=== PATIENT | female | born 1990 | race Caucasian/White ===

== ENCOUNTER 2019-12-11 08:46 | Inpatient (IN) ==
[2019-12-11] MEDS ORDERED: OXYTOCIN 30 UNITS/500 ML BAG IV PRN ×2 (09:11→18:48)
--- NOTE | 2019-12-11 09:17 | Labor Progress Brief Note ---
Date of Service December 11, 2019 Subjective Contractions Q5min overnight. No LOF, VB. +FM. Assessment & Plan (1) Normal labor and delivery: Making change despite contrations fairly spaced apart. Will manage expectantly for now. Physical Exam Physical Exam: /-2 and definite change from office exam yesterday. FHT Cat 1 and [place] Q7min. Results & Data Vital Signs (Past 12 Hours) Vital Signs Temp Pulse Resp BP 12/11/19 08:56 95 H 127/80 12/11/19 08:55 98.1 F 16 Coding Level of Care Code None Diagnoses Normal labor and delivery O80
[2019-12-11 09:31] LABS: Hematocrit (blood only) 37.6 % (37-47); Hemoglobin 12.7 g/dL (12.0-16.0); Mean Corpuscular Hemoglobin 30.7 pg (25-34); Mean Corpuscular Volume 90.8 fL (80-100); Mean Platelet Volume 13.9 fL (7.4-10.4); Platelet Count 172 K/uL (130-400); RDW Coefficient of Variation 13.4 % (11.5-14.5); RDW Standard Deviation 44.5 fL (36.4-46.3); Red Blood Count 4.14 M/uL (4.2-5.4); White Blood Count 16.24 K/uL (4.8-10.8)
[2019-12-11 09:52] LABS: Mean Corpuscular Hgb Conc 33.8 g/dL (32-36)
[2019-12-11] MEDS: LACTATED RINGER'S 1,000 ML IV PRN ×2 (12:18→15:01)
[2019-12-11] MEDS ORDERED: ePHEDrine sulfate 50 MG/ML AMP ONE (12:23)
[2019-12-11] MEDS ORDERED: BUPIVACAINE 0.25% 30 ML VIAL ONE (12:23)
[2019-12-11] MEDS ORDERED: fentaNYL citrate 100 MCG/2 ML VIAL ONE (12:23)
[2019-12-11] MEDS ORDERED: fentaNYL 2MCG/ML ROPIV 1.25MG/ML 100 ML BAG EPI ONE (12:25)
--- NOTE | 2019-12-11 12:26 | Labor Progress Brief Note ---
Date of Service December 11, 2019 Subjective Ready for epidural. Assessment & Plan (1) Normal labor and delivery: cont curr mgmt. Physical Exam Physical Exam: 6/100/-1 AROM clear FHT Cat 1 [place] Q3-5 irreg Results & Data Vital Signs (Past 12 Hours) Vital Signs Temp Pulse Resp BP Pulse Ox 12/11/19 12:20 91 H 97 12/11/19 11:06 97.9 F 16 12/11/19 11:05 81 130/74 12/11/19 08:56 95 H 127/80 12/11/19 08:55 98.1 F 16 Coding Level of Care Code None Diagnoses Normal labor and delivery O80
--- NOTE | 2019-12-11 13:30 | Anesthesiology Consultation ---
Date of Service December 11, 2019 Assessment & Plan (1) Encounter for pre-operative examination: Chart Review Chart Review: Patient NOT seen in Pre Admission Testing and Acceptable Risk for Labor Epidural Consults Requested none ASA ASA2 Proposed Anesthesia Anesthesia Type: Labor Epidural Risk / Benefits Reviewed With: PT / POA / Parent / Guardian, Accepts Plan and Informed Consent Obtained History Height/Weight Height: 5 ft 3 in Weight: 87.997 kg Allergies Allergy/AdvReac Type Severity Reaction Status Date / Time amoxicillin Allergy Hives Verified 12/11/19 09:00 Medications Home Medications Medication Instructions Recorded Confirmed Last Taken prenat.vits,nathan,[id number] 1 tab PO DAILY 11/05/19 12/11/19 12/10/19 09:00 folic acid 1 mg tablet 4 mg PO DAILY #30 tab 12/03/19 12/11/19 12/10/19 09:00 Active Medications Generic Name Dose Route Start Last Admin Trade Name Freq PRN Reason Stop Dose Admin Lactated Ringer's 1,000 mls @ 125 mls/hr 12/11/19 09:15 12/11/19 12:47 Lr IV 12/13/19 09:14 125 mls/hr .Q8H PRN Infusion L&D Protocol Protocol NPO Date Last Intake of Fluids: 12/11/19 Time Last Intake of Fluids: 13:28 Date Last Intake of Solids: 12/10/19 Time Last Intake of Solids: 21:00 Past Medical History Medical History theraputic in 2019 Anemia no medications Asthma as a child; no medications currently Hx of varicella as a child Exercise / Class Metabolic Activity II 4-5 Yardwork/Stairs/Walk up hill Past Family History Family History Mother Breast cancer Anemia Grandmother (Maternal) Anemia Aunt Anemia Past Surgical History Surgical History H/O hernia repair right 2008 Past Anesthesia History No Hx of Anesthesia Complications History of PONV No Hx of PONV Social History Smoking Status: Never smoker Hx Alcohol Use: No Hx Substance Use: No substance use type: does not use Review of Systems Patient denies history of abnormal bleeding or bleeding disorder. Patient denies active use of anticoagulants other than low dose aspirin. Patient denies numbness, tingling or weakness in lower extremities. Physical Exam Vital Signs Last Vital Signs Temp 36.6 C 12/11/19 11:06 Pulse 84 12/11/19 13:20 Resp 16 12/11/19 11:06 BP 130/74 12/11/19 11:05 Pulse Ox 96 12/11/19 13:20 Constitutional not obese (Gravid uterus) ENMT Mouth: no TMJ abnormality and oral opening not small Thyromental Distance: > or= 3.5 Finger Breadths Mallampati Class: II Neck normal visual inspection; neck extension not limited Respiratory normal respiratory effort Auscultation: lungs clear to auscultation bilaterally Cardiovascular Rate/Rhythm: regular rate and regular rhythm Heart Sounds: no murmur Neurologic moves all extremities Motor/Sensory: no sensory deficit Psychiatric Orientation: alert and oriented x 3 Testing Laboratory Results 12/11/19 09:18
[2019-12-11] MEDS ORDERED: fentaNYL 2MCG/ML ROPIV 1.25MG/ML 100 ML BAG EPI PRN (14:14)
[2019-12-11] MEDS ORDERED: ONDANSETRON INJ 2 MG/ML 2 ML VIAL IV PRN (14:14)
[2019-12-11] MEDS ORDERED: NALBUPHINE HCL INJ 10 MG/ML AMP IV PRN (14:14)
[2019-12-11] MEDS ORDERED: NALOXONE HCL 1 MG in SODIUM CHLORIDE 0.9% 1000ML 1,000 ML IV PRN (14:14)
[2019-12-11] MEDS ORDERED: ePHEDrine sulfate 50 MG/ML AMP IV PRN (14:14)
[2019-12-11] MEDS ORDERED: NALOXONE HCL 0.4 MG/1 ML VIAL/CARP IV PRN (14:14)
[2019-12-11] MEDS ORDERED: DiphenhydrAMINE HCL 50 MG/ML VIAL IV PRN (14:14)
--- NOTE | 2019-12-11 21:29 | Delivery Summary ---
Vaginal Delivery Summary Date of Service December 11, 2019 Vaginal Delivery Summary DIAGNOSES: 1. Tran intrauterine at 40w2d gestation. 2. Spontaneous onset of labor. 3. Group B Streptococcus Neg. PROCEDURE: Spontaneous vaginal delivery and repair of second degree laceration. SURGEON: Rosemry Alarcon MD. SHOTGUN SHELL ASSEMBLY MACHINE OPERATOR: None. ESTIMATED BLOOD LOSS: 300 mL. COMPLICATIONS: None. PLACENTA: Spontaneous and intact with a 3-vessel cord. DISPOSITION: Stable to labor and delivery. DESCRIPTION: The patient pushed well and brought the head to in OA position with mild asynclitism. The infant's head was allowed to deliver with contraction force and no further active pushing, with the perineum protected during this time. The shoulders delivered easily with a maternal pushing effort. There was no nuchal cord. The shoulders and body delivered without any difficulty, and the infant was placed on the maternal abdomen. It was vigorous and moving all extremities, and making respiratory efforts. The cord was doubly clamped by the MD and then cut by the FOB. The placenta delivered spontaneously and was noted to be intact and with a 3VC. The cervix, vagina and perineum were examined and were found to have a second degree laceration which was repaired with vircyl suture in the usual manner. The fundus was firm and lochia minimal immediately after delivery.
--- NOTE | 2019-12-11 21:55 | Anesthesia Procedure Note ---
Date of Service December 11, 2019 Anesthesia Post Epidural Note Vital Signs Vital Signs: Temp Pulse Resp BP Pulse Ox 36.9 C 98 H 18 120/65 96 12/11/19 19:00 12/11/19 21:48 12/11/19 20:29 12/11/19 21:48 12/11/19 21:09 Pain Intensity Abdomen: Pain Intensity: 3 Notes Mental Status: alert / awake / arousable and participated in evaluation Patient Amnestic to Procedure: No Nausea / Vomiting: adequately controlled Pain: adequately controlled Airway Patency, RR, SpO2: stable & adequate BP & HR: stable & adequate Hydration State: stable & adequate Neuraxial Anesthesia: was administered and sensory block is resolving Anesthetic Complications: no major complications apparent and Pt Satisfied with anesthetic care Epidural: Removed without complications and With tip intact
[2019-12-12] MEDS ORDERED: SUPERCREAM 0.870% 15 GM JAR EXT PRN (00:41)
[2019-12-12] MEDS ORDERED: HYDROCORTISONE ACETATE 25 MG SUPP PR PRN (00:41)
[2019-12-12] MEDS ORDERED: OXYCODONE/ACETAMINOPHEN 5mg/325mg TAB PO PRN (00:41)
[2019-12-12] MEDS ORDERED: ACETAMINOPHEN 325 MG TAB PO PRN (00:41)
[2019-12-12] MEDS ORDERED: BENZOCAINE 20% AER SPR 82.5 GM CAN EXT PRN (00:41)
[2019-12-12] MEDS ORDERED: DIPHTHERIA/TETANUS/PERTUSSIS 0.5 ML SYR/VIAL IM ONE (00:41)
[2019-12-12] MEDS: IBUPROFEN 600 MG TAB PO PRN ×4 (00:50→18:34)
[2019-12-12 06:43] LABS: Hematocrit (blood only) 33.7 % (37-47); Hemoglobin 11.3 g/dL (12.0-16.0); Mean Corpuscular Hemoglobin 30.5 pg (25-34); Mean Corpuscular Hgb Conc 33.5 g/dL (32-36); Mean Corpuscular Volume 91.1 fL (80-100); Mean Platelet Volume 14.3 fL (7.4-10.4); Platelet Count 165 K/uL (130-400); RDW Coefficient of Variation 13.6 % (11.5-14.5); RDW Standard Deviation 44.7 fL (36.4-46.3)
--- NOTE | 2019-12-12 07:56 | Obstetrical Progress Note ---
Date of Service December 12, 2019 Assessment & Plan (1) Normal labor and delivery: Recovering well from . Subjective Ambulation: ambulating normally Voiding: no voiding problems Passing Gas:: Yes Diet Tolerance:: regular diet Lochia:: Small Feeding Type:: breast feeding Physical Exam Constitutional WD/WN, vitals as above Eyes PERRL, conjunctivae normal, anicteric sclerae Neck normal visual inspection Respiratory normal respiratory effort and able to speak in complete sentences; no respiratory distress and no labored breathing Cardiovascular Rate/Rhythm: regular rate and regular rhythm Extremities: no edema Chest (Breasts) Chest: normal inspection of chest Gastrointestinal (Abdomen) Inspection/Auscultation: abdomen normal to inspection Soft, postgravid Psychiatric A+Ox3, euthymic affect Genitourinary OB Exam Abdomen: + fundal height Fundus: + firm and + relation to umbilicus (fundus just below umbilicus); not tender Results & Data Vital Signs (Past 12 Hours) Vital Signs Temp Pulse Pulse Pulse Resp BP BP 12/12/19 04:00 98.2 F 80 16 12/12/19 00:00 98.4 F 110 H 18 125/62 12/11/19 23:34 111 H 125/62 12/11/19 23:28 106 H 122/63 12/11/19 23:18 105 H 134/64 12/11/19 23:10 18 12/11/19 23:08 107 H 122/69 12/11/19 22:58 108 H 121/60 12/11/19 22:50 18 12/11/19 22:48 102 H 125/70 12/11/19 22:38 102 H 114/67 12/11/19 22:28 107 H 127/78 12/11/19 22:20 18 12/11/19 22:18 100 H 110/58 L 12/11/19 22:08 96 H 18 117/59 L 12/11/19 22:05 18 12/11/19 21:58 106 H 126/66 12/11/19 21:50 18 12/11/19 21:48 98 H 120/65 12/11/19 21:38 93 H 117/59 L 12/11/19 21:35 102 H 18 124/61 12/11/19 21:28 100 H 117/60 12/11/19 21:20 98.4 F 18 12/11/19 21:19 101 H 132/67 12/11/19 21:09 108 H 12/11/19 21:04 100 H 12/11/19 21:01 18 12/11/19 20:59 93 H 12/11/19 20:54 93 H 12/11/19 20:52 106 H 12/11/19 20:49 97 H 12/11/19 20:48 100 H 132/75 12/11/19 20:46 98.4 F 111 H 18 12/11/19 20:44 106 H 12/11/19 20:39 102 H 12/11/19 20:34 112 H 139/98 12/11/19 20:30 104 H 12/11/19 20:29 104 H 18 12/11/19 20:24 109 H 12/11/19 20:19 115 H 12/11/19 20:18 104 H 113/55 L 12/11/19 20:14 97 H 12/11/19 20:09 118 H 12/11/19 20:04 117 H 12/11/19 20:03 105 H 155/79 H 12/11/19 19:59 118 H 18 12/11/19 19:56 99 H BP Pulse Ox 12/12/19 04:00 113/59 L 12/12/19 00:00 12/11/19 23:34 12/11/19 23:28 12/11/19 23:18 12/11/19 23:10 12/11/19 23:08 12/11/19 22:58 12/11/19 22:50 12/11/19 22:48 12/11/19 22:38 12/11/19 22:28 12/11/19 22:20 12/11/19 22:18 12/11/19 22:08 12/11/19 22:05 12/11/19 21:58 12/11/19 21:50 12/11/19 21:48 12/11/19 21:38 12/11/19 21:35 12/11/19 21:28 12/11/19 21:20 12/11/19 21:19 12/11/19 21:09 96 12/11/19 21:04 97 12/11/19 21:01 12/11/19 20:59 95 12/11/19 20:54 97 12/11/19 20:52 86 L 12/11/19 20:49 96 12/11/19 20:48 12/11/19 20:46 86 L 12/11/19 20:44 97 12/11/19 20:39 97 12/11/19 20:34 96 12/11/19 20:30 87 L 12/11/19 20:29 96 12/11/19 20:24 97 12/11/19 20:19 96 12/11/19 20:18 12/11/19 20:14 96 12/11/19 20:09 96 12/11/19 20:04 96 12/11/19 20:03 12/11/19 19:59 95 12/11/19 19:56 85 L
[2019-12-12] MEDS: PRENATAL VITAMIN 1 TAB PO SCH (08:11)
[2019-12-12] MEDS: DOCUSATE SODIUM 100 MG CAP PO SCH ×2 (08:11→20:30)
[2019-12-13] MEDS: IBUPROFEN 600 MG TAB PO PRN ×2 (02:21→13:24)
--- NOTE | 2019-12-13 08:12 | Obstetrical Progress Note ---
Date of Service December 13, 2019 Assessment & Plan (1) : PPD#2 doing well, no concerns. Discharge instructions reviewed. Subjective Ambulation: ambulating normally Voiding: no voiding problems Diet Tolerance:: regular diet Lochia:: Moderate Feeding Type:: breast feeding PPD#2 doing well. No concerns. Review of Systems All systems reviewed & are unremarkable except as noted in HPI & below Physical Exam Constitutional WD/WN, vitals as above no acute distress Respiratory normal respiratory effort Cardiovascular Rate/Rhythm: regular rate and regular rhythm Gastrointestinal (Abdomen) Inspection/Auscultation: abdomen normal to inspection; abdomen not distended Percussion/Palpation: abdomen soft Genitourinary OB Exam Abdomen: + fundal height Fundus: + firm; not tender Results & Data Vital Signs (Past 12 Hours) Vital Signs Temp Pulse Resp BP Pulse Ox 12/13/19 07:00 37.1 C 88 20 112/76 97 12/12/19 22:45 36.8 C 76 18 121/82
[2019-12-13] MEDS: DOCUSATE SODIUM 100 MG CAP PO SCH (08:22)
[2019-12-13] MEDS: PRENATAL VITAMIN 1 TAB PO SCH (08:22)
== END 2019-12-13 13:39 | disposition home or self-care (01) | DRG 807 ==
LOC: OPB 08:46 → 4S1 08:48 → 4S2 12-12 00:47

== ENCOUNTER 2021-07-27 09:29 | Inpatient (IN) ==
[2021-07-27] MEDS ORDERED: OXYTOCIN 30 UNITS/500 ML BAG IV PRN ×2 (10:06→12:39)
--- NOTE | 2021-07-27 10:08 | History & Physical Report ---
Date of Service July 27, 2021 Assessment & Plan (1) Normal labor: Plan: admit, fetus category one. desires epidural. ONce comfortable, will arom. anticipate . History of Present Illness Chief Complaint: contractions Primary Care Provider: Bridget Salgado MD Patient is a 30yowf who presents to labor and delivery complaining of contractions since 2am and lots of mucous d/c. no vb. no lof. +fm. uncomplicated. she is 39 6/7. OB Labs: Blood Type A Positive 12/16/20 Antibody Screen NEGATIVE 12/16/20 Hemoglobin 12.4 g/dL (12.0-16.0) 05/10/21 Hematocrit 37.3 % (37-47) 05/10/21 Mean Corpuscular Volume 90.8 fL (80-100) 12/16/20 Platelet Count 305 K/uL (130-400) 12/16/20 Rubella IgG Antibody Immune (Immune) 12/16/20 Rapid Plasma Reagin Nonreactive (Nonreactive) 12/16/20 Hepatitis B Surface Antigen Neg (Neg) 12/16/20 HIV (1&2) Ab and P24 Ag, 4th Gener Neg (Neg) 12/16/20 Glucose 1 Hour 50 gm Load 140 mg/dl (70-130) H 02/10/21 Maternal Serum Alpha Fetoprotein 28.0 ng/mL 02/10/21 OB Optional Labs: Chlamydia trachomatis RNA NOT DETECTED (NOT DETECTED) 12/16/20 Neisseria gonorrhoeae RNA NOT DETECTED (NOT DETECTED) 12/16/20 Alpha Fetoprotein Triple Screen SEE NOTE 02/10/21 Labs Reviewed: Initial OB Labs 06/02/19 Blood Type & RH A POSITIVE Antibody Screen- negative HCT/HGB 39.1& 13.1 Platelets 282 Pap Test - reports WNL Rubella Positive RPR- non reactive Urine Culture/Screen-negative HBsAg- negative 24-28 Week OB Labs HCT/HGB 08/26/19 37.1% and 12.3 Diabetes Screen (1hr) 08/26/19 102 Genetic OB Labs Panorama low risk, male - reported by patient Quad Screen 06/30/19- NEGATIVE Nuchal Translucency GBS negative Allergies Allergy/AdvReac Type Severity Reaction Status Date / Time amoxicillin Allergy Hives Verified 07/20/21 14:10 Home Medications Medication Instructions Recorded Confirmed Type prenat.vits,nathan,[id number] 1 tab PO DAILY #90 tab 04/10/21 07/27/21 Rx Patient History Medical History (Updated 07/27/21 @ 10:12 by Leona Reynaga MD, FACOG) theraputic in 2019 Anemia no medications Asthma as a child; no medications currently Hx of varicella as a child Surgical History H/O hernia repair right 2008 Family History Mother Breast cancer Anemia Grandmother (Maternal) Anemia Aunt Anemia Denies family history of Ovarian cancer Prostate cancer Myocardial infarction Colorectal cancer Social History Smoking Status: Never smoker Second Hand Exposure: No; Hx Alcohol Use: No Hx Substance Use: No Preferred Language: Citizen Of [place] Communication Ability: Effective Nursing Home Social Worker Required: No Beliefs That Will Affect Care: None marital status: marital status details: Austin Blanco (32) [phone] Current Living Situation: Family Current Living Situation Comment: lives with spouse, son, 1dog. current occupational status: employed current occupation: Communications at [employer] Other Information That Helps Us Care for You: No Feels Safe at Home: Yes Safety Concerns: Feels Safe At This Time Childhood Exposure to Second-Hand Smoke: No Dental Care, Regularly: Yes Physical Activity Frequency: 5-6 Times per Week Seatbelt Use: always Sunscreen Use: Yes Assistive Devices: None OB History g1--2018--12 week eab, anencephaly g2--12/03, , 7#12, no issues CHIEF RELAY TESTER History noncontributory Physical Exam Constitutional: WD/WN, vitals as above Gastrointestinal (Abdomen): soft, gravid, nt Psychiatric: A+Ox3, euthymic affect Genitourinary: cx--6/100/-2, bulging bag toco--3-5 min efm--120s wtih mod variability, accels to 160s, no decels. Results & Data ([facility]) Vital Signs (Past 12 Hours) Vital Signs Pulse Resp BP 07/27/21 09:47 84 135/78 07/27/21 09:44 18 Coding Level of Care Code None Diagnoses Normal labor O80; Z37.9
[2021-07-27] MEDS: LACTATED RINGER'S 1,000 ML IV PRN ×2 (10:19→12:20)
[2021-07-27 10:26] LABS: Hematocrit (blood only) 37.9 % (37-47); Hemoglobin 12.9 g/dL (12.0-16.0); Mean Corpuscular Volume 91.1 fL (80-100); Mean Platelet Volume 13.8 fL (7.4-10.4); Platelet Count 195 K/uL (130-400); RDW Standard Deviation 45.3 fL (36.4-46.3); Red Blood Count 4.16 M/uL (4.2-5.4); White Blood Count 10.87 K/uL (4.8-10.8)
[2021-07-27] MEDS ORDERED: BUPIVACAINE 0.25% 30 ML VIAL ONE (10:43)
[2021-07-27] MEDS ORDERED: SODIUM CHLORIDE 0.9% INJ 10 ML VIAL ONE (10:43)
[2021-07-27] MEDS ORDERED: ePHEDrine sulfate 50 MG/ML AMP ONE (10:43)
[2021-07-27] MEDS ORDERED: fentaNYL citrate 100 MCG/2 ML VIAL ONE (10:44)
[2021-07-27] MEDS ORDERED: fentaNYL 2MCG/ML ROPIVACAINE 1.25MG/ML 100 ML BAG EPI ONE (10:44)
[2021-07-27] MEDS ORDERED: diphenhydrAMINE 50 MG/ML VIAL IV PRN (11:31)
[2021-07-27] MEDS ORDERED: NALOXONE HCL 0.4 MG/1 ML VIAL/CARP IV PRN (11:31)
[2021-07-27] MEDS ORDERED: ONDANSETRON INJ 2 MG/ML 2 ML VIAL IV PRN (11:31)
[2021-07-27] MEDS ORDERED: NALOXONE HCL 1 MG in SODIUM CHLORIDE 0.9% 1000ML 1,000 ML IV PRN (11:31)
[2021-07-27] MEDS ORDERED: ePHEDrine sulfate 50 MG/ML AMP IV PRN (11:31)
[2021-07-27] MEDS ORDERED: NALBUPHINE HCL INJ 10 MG/ML AMP IV PRN (11:31)
[2021-07-27] MEDS ORDERED: fentaNYL 2MCG/ML ROPIVACAINE 1.25MG/ML 100 ML BAG EPI PRN (11:32)
--- NOTE | 2021-07-27 11:35 | Anesthesiology Consultation ---
Date of Service July 27, 2021 Assessment & Plan Chart Review Chart Review: Patient NOT seen in Pre Admission Testing and Acceptable Risk for Labor Epidural Consults Requested none ASA ASA2 Proposed Anesthesia Anesthesia Type: Labor Epidural and CSE Risk / Benefits Reviewed With: PT / POA / Parent / Guardian, Accepts Plan and Informed Consent Obtained History Height/Weight Height: 5 ft 3 in Weight: 90.718 kg Allergies Allergy/AdvReac Type Severity Reaction Status Date / Time amoxicillin Allergy Hives Verified 07/20/21 14:10 Medications Home Medications Medication Instructions Recorded Confirmed Last Taken prenat.vits,nathan,[id number] 1 tab PO DAILY #90 tab 04/10/21 07/27/21 07/27/21 Active Medications Generic Name Dose Route Start Last Admin Trade Name Freq PRN Reason Stop Dose Admin Lactated Ringer's 1,000 mls @ 125 mls/hr 07/27/21 10:06 07/27/21 10:19 Lr IV 07/29/21 10:05 999 mls/hr .Q8H PRN Administration L&D Protocol Protocol NPO Date Last Intake of Fluids: 07/27/21 Time Last Intake of Fluids: 09:00 Date Last Intake of Solids: 07/27/21 Time Last Intake of Solids: 09:00 Past Medical History Medical History theraputic in 2019 Anemia no medications Asthma as a child; no medications currently Hx of varicella as a child Exercise / Class Metabolic Activity II 4-5 Yardwork/Stairs/Walk up hill Past Family History Family History Mother Breast cancer Anemia Grandmother (Maternal) Anemia Aunt Anemia Denies family history of Ovarian cancer Prostate cancer Myocardial infarction Colorectal cancer Past Surgical History Surgical History H/O hernia repair right 2009 Past Anesthesia History No Hx of Anesthesia Complications and No Family Hx of Anesthesia Complications History of PONV No Hx of PONV and No Hx of Motion Sickness Social History Smoking Status: Never smoker Hx Alcohol Use: No Hx Substance Use: No substance use type: does not use Review of Systems no chest pain or sob Physical Exam Vital Signs Last Vital Signs Temp 36.7 C 07/27/21 09:41 Pulse 79 07/27/21 11:31 Resp 18 07/27/21 09:44 BP 135/78 07/27/21 09:47 Pulse Ox 97 07/27/21 11:31 ENMT Mouth: no TMJ abnormality Thyromental Distance: > or= 3.5 Finger Breadths Mallampati Class: II Neck normal visual inspection Respiratory normal respiratory effort Auscultation: lungs clear to auscultation bilaterally Cardiovascular Rate/Rhythm: regular rate and regular rhythm Musculoskeletal Spine: normal cervical ROM Neurologic moves all extremities Psychiatric Orientation: alert and oriented x 3 Testing Laboratory Results 07/27/21 10:18
[2021-07-27] MEDS ORDERED: SUPERCREAM 0.870% 15 GM JAR EXT PRN (12:39)
[2021-07-27] MEDS ORDERED: bisacodyL 10 MG SUPP PR PRN (12:39)
[2021-07-27] MEDS ORDERED: DIPHTHERIA/TETANUS/PERTUSSIS 0.5 ML SYR/VIAL IM ONE (12:39)
[2021-07-27] MEDS ORDERED: ACETAMINOPHEN 325 MG TAB PO PRN (12:39)
[2021-07-27] MEDS ORDERED: HYDROCORTISONE ACETATE 25 MG SUPP PR PRN (12:39)
[2021-07-27] MEDS ORDERED: BENZOCAINE 20% AER SPR 82.5 GM CAN EXT PRN (12:39)
--- NOTE | 2021-07-27 12:42 | Delivery Summary ---
Vaginal Delivery Summary Date of Service July 27, 2021 Vaginal Delivery Summary and 2nd Degree LAC Pre-operative Diagnosis: at 39 weeks labor Post-operative Diagnosis: same meconium Procedure: epidural arom second degree laceration and repair EBL: 400cc Anesthesia: epidural Procedure: Patient presented to labor and delivery in active labor at 6cm. Got epidural and progressed to c/c/+1. arom for meconium. The patient pushed for 2 contractions to deliver a viable male in jessica position. No nuchal cord. The rest of the infant was then delivered without difficulty. The baby was vigorous. The nose and mouth were again bulb suctioned and the was placed in the maternal abdomen for drying and attention. Cord was clamped and cut at one minute of life. Cord blood and segment obtained. Placenta delivered spontaneous, intact with a three vessel cord. Cervix/sulci/rectum were intact. A second degree perineal laceration was repaired in the normal standard fashion. Hemostasis obtained with dilute pitocin and fundal massage. Apgars were 8/9. Mother and baby doing well at the end of the delivery. [facility] Vaginal Delivery Charge Delivery Type Details: and 2nd Degree LAC
--- NOTE | 2021-07-27 13:26 | Anesthesia Procedure Note ---
Date of Service July 27, 2021 Anesthesia Post Epidural Note Vital Signs Vital Signs: Temp Pulse Resp BP Pulse Ox 36.7 C 81 18 123/70 98 07/27/21 12:45 07/27/21 13:17 07/27/21 12:45 07/27/21 13:17 07/27/21 12:31 Pain Intensity Lower Abdomen: Pain Intensity: 2 Notes Mental Status: alert / awake / arousable and participated in evaluation Nausea / Vomiting: adequately controlled Pain: adequately controlled Airway Patency, RR, SpO2: stable & adequate BP & HR: stable & adequate Hydration State: stable & adequate Neuraxial Anesthesia: was administered and sensory block is resolving Anesthetic Complications: no major complications apparent and Pt Satisfied with anesthetic care Epidural: Removed without complications and With tip intact
[2021-07-27] MEDS: IBUPROFEN 600 MG TAB PO PRN ×3 (14:21→23:33)
[2021-07-27] MEDS: DOCUSATE SODIUM 100 MG CAP PO SCH (19:52)
[2021-07-28] MEDS: IBUPROFEN 600 MG TAB PO PRN (05:07)
[2021-07-28 05:52] LABS: Hematocrit (blood only) 31.4 % (37-47); Hemoglobin 10.5 g/dL (12.0-16.0)
--- NOTE | 2021-07-28 06:13 | Obstetrical Progress Note ---
Date of Service <Adama Castro DO - Last Filed: 07/28/21 07:00> July 28, 2021 Assessment & Plan <Adama Castro DO - Last Filed: 07/28/21 07:00> (1) Encounter for care and examination after delivery: 30 yo post day 1 from vaginal delivery, doing well. -Continue routine post care. - vital signs reviewed and WNL. (Tmax 37.1) -Blood type A+, GBS -, Rubella Immune -Encourage ambulation, Recommend to control pain with Motrin, tylenol PRN, resume regular diet, monitor lochia. -encourage breast feeding -hemoglobin 10.87 -Discussed discharge with the patient, she said she wants to go home later tod ay. She will follow up in clinic at 6 weeks. <Leona Reynaga MD, FACOG - Last Filed: 07/28/21 07:02> (1) Encounter for care and examination after delivery: Subjective <Adama Castro DO - Last Filed: 07/28/21 07:00> Ambulation: ambulating normally Voiding: no voiding problems Passing Gas:: Yes Diet Tolerance:: regular diet Lochia:: Small Feeding Type:: breast feeding Current Pain Level(1-10): 0 Review of Systems Denies fever, chills, sweats Denies shortness of breath, difficulty breathing, chest pain, palpitations, chest pressure. Denies breast pain. Denies dysuria. Denies headache or changes in vision Physical Exam <Adama Castro DO - Last Filed: 07/28/21 07:00> General: Alert, oriented. No acute distress. Cardiac: Regular rate and rhythm, no murmurs/rubs/gallops. Respiratory: Clear to auscultation bilaterally a/p, no wheezes/rales/rhonchi. No increased work of breathing. Symmetrical chest rise. No respiratory distress. Abdomen: Soft, nontender, nondistended. Bowel sounds present. Uterus: Uterine fundus firm, palpable [] cm below umbilicus. Lower Extremities: No lower extremity edema or swelling. No deep calf pain. Corky's negative bilaterally Results & Data ([facility]) <Adama Castro - Last Filed: 07/28/21 07:00> Vital Signs (Past 12 Hours) Vital Signs Temp Pulse Resp BP Pulse Ox 07/28/21 05:05 36.7 C 70 16 110/70 97 07/27/21 23:30 36.9 C 61 16 112/64 95 07/27/21 19:50 36.9 C 76 16 113/77 98 <Leona Reynaga MD, FACOG - Last Filed: 07/28/21 07:02> Co-Signing Physician Notes Resident Physician Supervision Note: I interviewed and examined the patient. Discussed with Dr. castro and agree with findings and plan as documented in the note. Any exceptions or clarifications are listed here: Doing well. uterus at u. Plan d/c. Inst ructions given. Documented By: Leona Reynaga MD, FACOG Resident Activity Tracking <Adama Castro DO - Last Filed: 07/28/21 07:00> Resident Involvement: Resident Care Provided Care Provided: OB Delivery
[2021-07-28] MEDS: DOCUSATE SODIUM 100 MG CAP PO SCH (07:54)
[2021-07-28] MEDS ORDERED: PRENATAL VITAMIN 1 TAB PO SCH (08:00)
[2021-07-28] MEDS ORDERED: bisacodyL 5 MG TABEC PO SCH (20:00)
== END 2021-07-28 13:32 | disposition home or self-care (01) | DRG 807 ==
LOC: OPB 09:29 → 4S1 09:30 → 4S2 15:17

== ENCOUNTER 2023-10-15 08:17 | Inpatient (IN) ==
[2023-10-15] MEDS ORDERED: LACTATED RINGER'S 1,000 ML IV PRN (08:36)
[2023-10-15] MEDS ORDERED: OXYTOCIN 30 UNITS/NSS 30 UNITS/500 ML BAG IV PRN ×2 (08:36→11:12)
[2023-10-15] MEDS ORDERED: LIDOCAINE 1% LOCAL 20 ML VIAL INFIL PRN (08:36)
--- NOTE | 2023-10-15 08:37 | History & Physical Report ---
Date of Service October 15, 2023 Assessment & Plan (1) with 39 completed weeks gestation: (2) Normal labor: Plan admit. fetus category one. desires epidural. then plan arom. anticipate . History of Present Illness Chief Complaint: contractions Primary Care Provider: Carlene Stratton MD Patient is a 32yowf wtih iup at 39 4/7 who presents with contractions starting at 1am and worsening. notes some bloody show. no lof. and Delivery Plans First baby with anencephaly. Recommend covid booster.--previously vaccinated. OB Labs: Blood Type A Positive 03/08/23 Antibody Screen NEGATIVE 03/08/23 Hemoglobin 12.2 g/dl (12.0-16.0) 07/23/23 Hematocrit 35.9 % (37.0-47.0) L 07/23/23 Mean Corpuscular Volume 88.1 fL (80.0-100.0) 03/08/23 Platelet Count 318 K/uL (130-400) 03/08/23 Rubella IgG Antibody Immune (Immune) 03/08/23 Rapid Plasma Reagin Nonreactive (Nonreactive) 03/08/23 Hepatitis B Surface Antigen Neg (Neg) 12/16/20 Hepatitis B Surface Antigen. NON-REACTIVE (NON-REACTIVE) 03/08/23 Hepatitis C Antibody (EIA) NON-REACTIVE (NON-REACTIVE) 03/08/23 HIV (1&2) Ab and P24 Ag, 4th Gener Neg (Neg) 12/16/20 HIV (1&2) Ag and Ab Confirmation NON-REACTIVE (NON-REACTIVE) 03/08/23 Glucose 1 Hour 50 gm Load 85 mg/dl (70-130) 07/23/23 Maternal Serum Alpha Fetoprotein 28.0 ng/mL 02/10/21 OB Optional Labs: Chlamydia trachomatis RNA Not Detected (NotDetected) 03/08/23 Neisseria gonorrhoeae RNA Not Detected (NotDetected) 03/08/23 Alpha Fetoprotein Triple Screen SEE NOTE 02/10/21 Labs Reviewed: cfdna-low risk--mln neg afp--akh gbs neg--akh Allergies Allergy/AdvReac Type Severity Reaction Status Date / Time amoxicillin Allergy Hives Verified 10/11/23 11:33 Home Medications Medication Instructions Recorded Confirmed Type prenat.vits,nathan,mgt-[id number] 1 tab PO DAILY #90 tabs 02/08/22 10/11/23 Rx omeprazole 40 mg capsule,delayed 40 mg PO DAILY #30 caps 07/25/23 10/11/23 Rx release Patient History Medical History Hx of varicella as a child Asthma as a child; no medications currently theraputic in 2019 Surgical History S/P inguinal hernia repair Family History Mother Breast cancer Anemia Grandmother (Maternal) Anemia Aunt Anemia Father No problems noted. Son No problems noted. Son No problems noted. Denies family history of Ovarian cancer Prostate cancer Myocardial infarction Colorectal cancer Social History Smoking Status: Never smoker Second Hand Exposure: No; Do You Dip or Chew Tobacco: No; Hx Alcohol Use: No Hx Substance Use: No Preferred Language: [place] Communication Ability: Effective Visual Impairment: No Limitations Hearing Ability: Normal Emr Implementation Specialist Required: No Beliefs That Will Affect Care: None marital status: marital status details: Austin Blanco ([phone] Current Living Situation: Spouse and Family Current Living Situation Comment: lives with spouse, 2 children, 1dog current occupational status: employed current occupation: Communications at [employer] How many Children do You have: 2 Feels Safe at Home: Yes Childhood Exposure to Second-Hand Smoke: No Diet: regular caffeine: Yes during the past year weight has: remained stable Dental Care, Regularly: Yes Physical Activity Frequency: Daily Seatbelt Use: always Sunscreen Use: Yes Assistive Devices: None OB History Past Pregnancies Del. Date GA wks Lbr Lgth wt Sex Type del Anes Place Del Prov ? Comment 01/14/19 12 Aborted-Elective f irst anencephaly, had TOP @ 12 wks, normal genetic testing on POCs 12/11/19 40 7lb 12oz M Epid ural [facility] Dr. Alarcon No 07/27/21 39 8lb 3.5oz M Epi dural [facility] Dr. Reynaga No COUNSELING SERVICES DIRECTOR History noncontrtibutory Physical Exam Constitutional: WD/WN, vitals as above Gastrointestinal (Abdomen): soft, gravid, nt Psychiatric: A+Ox3, euthymic affect Genitourinary: cx--6/100/-2, bulging bag toco--q2-4min efm--130s with mod variabiltiy, accels present, no decels Results & Data Vital Signs (Past 12 Hours) Vital Signs Pulse BP 10/15/23 08:24 81 119/75 Coding Level of Care Code None Diagnoses with 39 completed weeks gestation Z3A.39 Normal labor O80; Z37.9
[2023-10-15] MEDS ORDERED: ePHEDrine sulfate 50 MG/ML AMP ONE (08:40)
[2023-10-15] MEDS ORDERED: fentaNYL citrate PF 100 MCG/2 ML VIAL ONE (08:40)
[2023-10-15] MEDS ORDERED: LIDOCAINE 2%/EPINEPHRINE 1:200,000 20 ML PF ONE (08:41)
[2023-10-15] MEDS ORDERED: SODIUM CHLORIDE 0.9% PF INJ 10 ML VIAL ONE (08:41)
[2023-10-15] MEDS ORDERED: BUPIVACAINE 0.25% PF 30 ML VIAL ONE (08:41)
[2023-10-15] MEDS ORDERED: fentANYL 2 MCG/ML BUPIVacaine 0.125%-NSS 100ML BAG ONE (08:41)
[2023-10-15] MEDS ORDERED: ONDANSETRON INJ 2 MG/ML 2 ML VIAL IV PRN (09:05)
[2023-10-15] MEDS ORDERED: NALBUPHINE HCL 5 MG in SYRINGE 0 ML IV PRN (09:05)
[2023-10-15] MEDS ORDERED: fentaNYL citrate PF 100 MCG/2 ML VIAL EPI PRN (09:05)
[2023-10-15] MEDS ORDERED: fentANYL 2 MCG/ML BUPIVacaine 0.125%-NSS 100ML BAG EPI PRN (09:05)
[2023-10-15] MEDS ORDERED: diphenhydrAMINE 50 MG/ML VIAL IV PRN (09:05)
[2023-10-15] MEDS ORDERED: ePHEDrine sulfate 50 MG/ML AMP IV PRN (09:05)
[2023-10-15] MEDS ORDERED: fentaNYL citrate PF 100 MCG/2 ML VIAL EPI STA (09:05)
[2023-10-15] MEDS ORDERED: NALOXONE HCL 0.4 MG/1 ML VIAL/CARP IV PRN (09:05)
[2023-10-15] MEDS ORDERED: LIDOCAINE 2%/EPINEPHRINE 1:200,000 20 ML PF EPI STA (09:05)
[2023-10-15] MEDS ORDERED: SODIUM CHLORIDE 0.9% PF INJ 10 ML VIAL EPI STA (09:05)
[2023-10-15] MEDS ORDERED: BUPIVACAINE 0.25% PF 30 ML VIAL EPI STA (09:05)
[2023-10-15] MEDS ORDERED: LIDOCAINE 2% MPF LOCAL 5 ML VIAL EPI PRN (09:05)
[2023-10-15] MEDS ORDERED: NALOXONE HCL 1 MG in SODIUM CHLORIDE 0.9% 1,000 ML IV PRN (09:05)
[2023-10-15] MEDS ORDERED: BUPIVACAINE 0.25% PF 30 ML VIAL EPI PRN (09:05)
[2023-10-15] MEDS ORDERED: ROPIVACAINE 0.5% PF 5 MG/ML 20 ML VIAL EPI PRN (09:05)
[2023-10-15] MEDS ORDERED: SODIUM CHLORIDE 0.9% PF INJ 10 ML VIAL EPI PRN (09:05)
--- NOTE | 2023-10-15 09:05 | Anesthesiology Consultation ---
Date of Service October 15, 2023 Assessment & Plan (1) Encounter for pre-operative examination: Chart Review Chart Review: Patient NOT seen in Pre Admission Testing and Acceptable Risk for Labor Epidural Consults Requested none History Allergies Allergy/AdvReac Type Severity Reaction Status Date / Time amoxicillin Allergy Hives Verified 10/11/23 11:33 Medications Home Medications Medication Instructions Recorded Confirmed Last Taken prenat.vits,nathan,axl-[id number] 1 tab PO DAILY #90 tabs 02/08/22 10/11/23 Unknown omeprazole 40 mg capsule,delayed 40 mg PO DAILY #30 caps 07/25/23 10/11/23 Unknown release Past Medical History Medical History Hx of varicella as a child Asthma as a child; no medications currently theraputic in 2018 Past Family History Family History Mother Breast cancer Anemia Grandmother (Maternal) Anemia Aunt Anemia Father No problems noted. Son No problems noted. Son No problems noted. Denies family history of Ovarian cancer Prostate cancer Myocardial infarction Colorectal cancer Past Surgical History Surgical History S/P inguinal hernia repair Social History Smoking Status: Never smoker Do You Dip or Chew Tobacco: No Hx Alcohol Use: No Hx Substance Use: No substance use type: does not use Physical Exam Vital Signs Last Vital Signs Pulse 81 10/15/23 08:24 BP 119/75 10/15/23 08:24
[2023-10-15 09:10] LABS: Hematocrit (blood only) 36.2 % (37.0-47.0); Hemoglobin 12.4 g/dl (12.0-16.0); Mean Corpuscular Hgb Conc 34.3 g/dL (32.0-36.0); Mean Corpuscular Volume 87.7 fL (80.0-100.0); Mean Platelet Volume 13.9 fL (9.4-12.4); Platelet Count 202 K/uL (130-400); RDW Coefficient of Variation 13.7 % (11.5-14.5); RDW Standard Deviation 43.6 fL (36.4-46.3); Red Blood Count 4.13 M/uL (4.20-5.40); White Blood Count 11.42 K/ul (4.8-10.8)
--- NOTE | 2023-10-15 09:57 | Labor Progress Brief Note ---
Date of Service October 15, 2023 Subjective comfortable. arom for mec after epidural Assessment & Plan (1) Normal labor: Plan labor down. anticipate . fetus category one. Physical Exam Physical Exam: cx--c/c/+1 toco--q2-4min efm--130s wtih mod variability, +scalp stim, early with contractions. Results & Data Vital Signs (Past 12 Hours) Vital Signs Temp Pulse Resp BP Pulse Ox O2 Del Method 10/15/23 09:50 88 10/15/23 09:50 100/63 10/15/23 09:49 99 10/15/23 09:49 82 10/15/23 09:44 99 10/15/23 09:44 87 10/15/23 09:42 86 L 10/15/23 09:42 84 10/15/23 09:39 100 10/15/23 09:39 83 10/15/23 09:37 136/71 10/15/23 09:35 89 10/15/23 09:35 132/69 10/15/23 09:34 95 10/15/23 09:34 84 10/15/23 09:33 78 10/15/23 09:33 132/77 10/15/23 09:31 79 10/15/23 09:31 127/96 10/15/23 09:29 99 10/15/23 09:29 84 10/15/23 09:29 131/78 10/15/23 09:27 145/87 H 10/15/23 09:25 93 H 10/15/23 09:25 127/77 10/15/23 09:24 96 10/15/23 09:24 82 10/15/23 09:23 72 10/15/23 09:23 117/73 10/15/23 09:22 94 10/15/23 09:22 79 10/15/23 09:19 97 10/15/23 09:19 85 10/15/23 09:16 94 10/15/23 09:16 94 H 10/15/23 09:14 97 10/15/23 09:14 94 H 10/15/23 09:09 96 10/15/23 09:09 89 10/15/23 08:56 36.6 C 81 22 119/75 Room Air 10/15/23 08:24 81 119/75 Coding Level of Care Code None Diagnoses Normal labor O80; Z37.9
--- NOTE | 2023-10-15 11:03 | Delivery Summary ---
Vaginal Delivery Summary Date of Service October 15, 2023 Vaginal Delivery Summary and 2nd Degree LAC Pre-operative Diagnosis: at 39 weeks labor Post-operative Diagnosis: same meconium Procedure: epidural second degree laceration and reapir EBL: 300 Anesthesia: epidural Procedure: Patient presented to labor and delivery in active labor. She got an epidural and then had arom with meconium noted. The patient progressed to c/c/0 and labored down for 30 minutes. The patient pushed for one contraction to deliver a viable female infant in karen position. The nose and mouth were bulb suctioned on the perineum and the rest of the infant was then delivered without difficulty. A loose nuchal cord x 1 reduced. The baby was vigorous. The nose and mouth were again bulb suctioned and the infant was placed in the maternal abdomen for drying and attention. Cord was clamped and cut at one minute of life. Cord blood and segment obtained. Placenta delivered spontaneous, intact with a three vessel cord. Cervix/sulci/rectum were intact. A small second degree perineal laceration was repaired in the normal standard fashion. Hemostasis obtained with dilute pitocin and fundal massage. Apgars were 9/10. Mother and baby doing well at the end of the delivery. [facility] Vaginal Delivery Charge Delivery Type Details: and 2nd Degree LAC
[2023-10-15] MEDS ORDERED: ACETAMINOPHEN 325 MG TAB PO PRN (11:12)
[2023-10-15] MEDS ORDERED: BENZOCAINE 20% SPRY 85 APPLN/85 GM CAN EXT PRN (11:12)
[2023-10-15] MEDS ORDERED: DIPHTHER/TETAN/PERTUS Vaccine (Tdap, Adol/Adult) 0.5mL IM ONE (11:12)
[2023-10-15] MEDS ORDERED: HYDROCORTISONE ACETATE 25 MG SUPP PR PRN (11:12)
[2023-10-15] MEDS ORDERED: bisacodyL 10 MG SUPP PR PRN (11:12)
--- NOTE | 2023-10-15 11:47 | Anesthesia Procedure Note ---
Date of Service October 15, 2023 Anesthesia Post Epidural Note Vital Signs Vital Signs: Temp Pulse Resp BP Pulse Ox O2 Del Method 97.9 F 78 22 126/77 98 Room Air 10/15/23 08:56 10/15/23 11:37 10/15/23 08:56 10/15/23 11:37 10/15/23 10:39 10/15/23 08:56 Notes Mental Status: alert / awake / arousable and participated in evaluation Nausea / Vomiting: adequately controlled Pain: adequately controlled Airway Patency, RR, SpO2: stable & adequate BP & HR: stable & adequate Hydration State: stable & adequate Neuraxial Anesthesia: was administered and sensory block is resolving Anesthetic Complications: no major complications apparent and Pt Satisfied with anesthetic care Epidural: Removed without complications and With tip intact
[2023-10-15] MEDS: IBUPROFEN 600 MG TAB PO PRN (18:07)
[2023-10-15] MEDS: DOCUSATE SODIUM 100 MG CAP PO SCH (20:12)
--- NOTE | 2023-10-16 06:03 | Obstetrical Progress Note ---
Date of Service <Clarissa Hernández Tahir - Last Filed: 10/16/23 06:10> October 16, 2023 Assessment & Plan <Clarissa Chowdaryhenrikjose r - Last Filed: 10/16/23 06:10> (1) care following vaginal delivery: Plan Feels well today. Eating well, voiding well, ambulating well. Pain well controlled with ibuprofen/tylenol Routine care; OOB, ambulation, continue regular diet. Anticipate discharge 24-48 hours after , today or tomorrow. After discharge will have 6 week follow-up with Dr. Reynaga. <Leona Reynaga MD, FACOG - Last Filed: 10/16/23 07:10> (1) care following vaginal delivery: Subjective <Clarissa Hernández Tahir - Last Filed: 10/16/23 06:10> Pt is a 32 y/o female who is PPD#1 following at 39 weeks. Today, pt states she is feeling pretty good. She states she has been up walking around, voiding, and tolerating intake since her delivery. She states her lochia is persistent but improved since yesterday. She states her cramping is a bit more today with breast feeding and she has been having some difficulty with latching, but otherwise feels she is doing well since the delivery and that baby is doing well. Pain is controlled with ibuprofen/tylenol. No questions or complaints at this time and states she thinks she wants to go home today. Constitutional: no fever, no chills or no sweats Respiratory: no dyspnea Cardiovascular: no chest pain or no palpitations Genitourinary (female): no dysuria Neurologic: no headache(s) no changes in vision, Physical Exam <Clarissa Hernández Tahir - Last Filed: 10/16/23 06:10> General: Alert, oriented. No acute distress. Cardiac: Regular rate and rhythm, no murmurs, rubs, or gallops. Respiratory: Clear to auscultation bilaterally, no wheezes/rales/rhonchi. No increased work of breathing. Symmetrical chest rise. No respiratory distress. Abdomen: Soft, nontender, nondistended. Bowel sounds present. Uterus: Uterine fundus firm. Lower extremities: No lower extremity edema or swelling. No deep calf pain. Results & Data <Clarissa Haro DO - Last Filed: 10/16/23 06:10> Vital Signs (Past 12 Hours) Vital Signs Temp Pulse Resp BP Pulse Ox O2 Del Method 10/16/23 04:00 36.7 C 74 20 114/72 95 Room Air 10/16/23 00:10 36.7 C 74 18 115/67 96 Room Air 10/15/23 19:55 36.8 C 70 18 109/70 99 Room Air Supervising Physician <Leona Reynaga MD, FACOG - Last Filed: 10/16/23 07:10> Co-Signing Physician Notes Resident Physician Supervision Note: I interviewed and examined the patient. Discussed with Dr. Haro and agree with findings and plan as documented in the note. Any exceptions or clarifications are listed here: Doing well. Desires d/c. Instructions reviewe d. Documented By: Leona Reyanga MD, FACOG Resident Activity Tracking <Clarissa Haro DO - Last Filed: 10/16/23 06:10> Resident Involvement: Resident Care Provided Care Provided: OB Delivery
--- NOTE | 2023-10-16 06:17 | Obstetrical Progress Note ---
Date of Service <Kristina Hartman - Last Filed: 10/16/23 07:05> October 16, 2023 Assessment & Plan <Kristina Hartman - Last Filed: 10/16/23 07:05> (1) care following vaginal delivery: Plan Patient is a 32F PPD #1 for a . The patient is feeling well today. Patient is having some trouble with breast feeding but is eating, voiding, and ambulating well and her pain is currently well controlled. Routine Care: OOB, ambulation, continue regular diet. Anticipate discharge 24-48 hours after , today or tomorrow (10/17). After discharge, patient will have 6 week follow-up with Dr. Reynaga. <Leona Reynaga MD, FACOG - Last Filed: 10/16/23 07:32> (1) care following vaginal delivery: Subjective <Kristina Hartman - Last Filed: 10/16/23 07:05> Patient is a 32 y/o female who is PPD Day #1 following a and 2nd degree laceration at 39W 4D. Patient has a PMH of her first baby with anencephaly. Today, patient states she is feeling really well and her baby is doing well. Her vitals were stable over night. She states that her bleeding is persistent but has decreased since yesterday, and her pain is mild. She states that she has been ambulating since her delivery, is tolerating a regular diet, and is voiding on her own. She is passing gas but has not had a bowel movement yet. She reports that her pain has been well controlled with ibuprofen and tylenol. She is breast and bottle feeding and states that her feeds have been going ok so far. She is having some trouble with latching currently. She has no questions or complaints at this time. She is interested in going home today. Constitutional: no fever, no chills or no sweats Respiratory: no dyspnea Cardiovascular: no chest pain or no palpitations Breast: no breast pain Genitourinary (female): no dysuria Neurologic: no headache(s) Physical Exam <Kristina Hartman - Last Filed: 10/16/23 07:05> General: Alert, oriented. No acute distress. Cardiac: Regular rate and rhythm, no murmurs, rubs, or gallops. Respiratory: Clear to auscultation bilaterally, no wheezes/rales/rhonchi. No increased work of breathing. Symmetrical chest rise. No respiratory distress. Abdomen: Soft, nontender, nondistended. Bowel sounds present. Uterus: Uterine fundus firm, palpable 3 cm below the umbilicus. Lower extremities: No lower extremity edema or swelling. No deep calf pain. Results & Data <Kristina Hartman - Last Filed: 10/16/23 07:05> Vital Signs (Past 12 Hours) Vital Signs Temp Pulse Resp BP Pulse Ox O2 Del Method 10/16/23 04:00 36.7 C 74 20 114/72 95 Room Air 10/16/23 00:10 36.7 C 74 18 115/67 96 Room Air 10/15/23 19:55 36.8 C 70 18 109/70 99 Room Air Supervising Physician <Leona Reynaga MD, FACOG - Last Filed: 10/16/23 07:32> Co-Signing Physician Notes patient seen with resident and student. see resident note.
[2023-10-16 06:20] LABS: Hematocrit (blood only) 32.9 % (37.0-47.0); Hemoglobin 10.7 g/dl (12.0-16.0)
[2023-10-16] MEDS ORDERED: PRENATAL VITAMIN 1 TAB PO SCH (08:00)
[2023-10-16] MEDS: DOCUSATE SODIUM 100 MG CAP PO SCH (08:10)
[2023-10-16] MEDS: IBUPROFEN 600 MG TAB PO PRN (08:10)
[2023-10-16] MEDS ORDERED: bisacodyL 5 MG TABEC PO SCH (20:00)
== END 2023-10-16 15:04 | disposition home or self-care (01) | DRG 807 ==
LOC: OPB 08:17 → 4S1 08:19 → 4E2 15:04